=== PATIENT | female | born 2000 | race Caucasian/White ===

== ENCOUNTER 2019-08-23 20:18 | Outpatient (CLI) | payer OTHER ==
[~2019-08-23] VITALS: Ht 149.9 cm; Wt 61.6 kg
[~2019-08-23 20:18] MED LIST: SULF1TAB38 PO
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
--- NOTE | 2019-08-23 20:37 | NUR ---
Pt reports lower pelvic cramping resembling period cramping, and "it hurts when I walk." Rn asked when pain started, pt reports around 4-5pm. RN asks pt to rate pain, pt states "Right now when I'm not moving, its nothing, when I am up walking around its a 5 or a 6 out of 10."
--- NOTE | 2019-08-23 20:41 | NUR ---
Upon taking pt temperature light colored bruising noted to L yazdanism area extending down to wine colored spotted bruises noted to L jaw line. RN looks at other side of pts face/neck area, faint light colored area noted to R neck, Pt states "That down here, thats a hicky."
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
[2019-08-23 21:00] VITALS: BP 116/59
--- NOTE | 2019-08-23 21:07 | NUR ---
This rn is now wearing mask and pt is wearing a akash. Patricia Evangelista, Director of Womens services was contacted regarding Physician wanting pt tested for COVID-19. Patricia updated that pt is running 100.4 fever, denies cough, sob, or decrease in 02 levels. Edilia makes another phone call and calls this rn back. Testing is not available for one symptom of fever, to be tested other criteria needs to be met according to KDAT guidelines. RN voices understanding.
[2019-08-23] MEDS ORDERED: D5 LR IV SOLUTION 1,000 ML IV SCH (21:15)
[2019-08-23] MEDS ORDERED: D5 LR IV SOLUTION 1,000 ML IV ONE (21:17)
--- NOTE | 2019-08-23 21:18 | NUR ---
updated on drug screen, and update from Patricia regarding pt does not fit criteria for covid screening according to KDAT, repeat sve and occ ctx, fhr and temp now being 98.6. 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 Physician voices understanding. Addendum: 08/23/19 at 4263 by STANLEY REYES RN time for 2217
--- NOTE | 2019-08-23 21:34 | NUR ---
Lab called for request for blood draw as iv will not draw from site.
[2019-08-23] MEDS ORDERED: PREN-53 PO (21:41)
[2019-08-23 21:52] LABS: BILIRUBIN,URINE NEGATIVE (NEGATIVE); CLARITY,URINE CLEAR; COLOR,URINE YELLOW; GLUCOSE, URINE (UA) NEGATIVE (NEGATIVE); KETONES,URINE NEGATIVE (NEGATIVE); LEUKOCYTE ESTERASE ,URINE TRACE (NEGATIVE); NITRITE,URINE NEGATIVE (NEGATIVE); PH,URINE 6.5 (5-9); PROTEIN,URINE NEGATIVE (NEGATIVE)
[2019-08-23 22:06] LABS: AMPHETAMINE SCREEN, URINE NEGATIVE (NEGATIVE); BARBITURATE SCREEN URINE NEGATIVE (NEGATIVE); BENZODIAZEPINES SCREEN URINE NEGATIVE (NEGATIVE); CANNABINOID SCREEN, URINE POSITIVE (NEGATIVE); COCAINE SCREEN URINE NEGATIVE (NEGATIVE); METHADONE STAT NEGATIVE (NEGATIVE); METHAMPHETAMINE SCREEN URINE S NEGATIVE (NEGATIVE); OPIATE SCREEN URINE NEGATIVE (NEGATIVE); OXYCODONE STAT NEGATIVE (NEGATIVE); PROPOXYPHENE STAT NEGATIVE (NEGATIVE); TRICYCLIC ANTIDEPRESSANTS SCRE NEGATIVE (NEGATIVE)
--- NOTE | 2019-08-23 22:10 | NUR ---
Lab present for blood draw at this time.
[2019-08-23 22:24] LABS: BACTERIA,URINE TRACE /HPF; WBC,URINE 0-2 /HPF
[2019-08-23 22:25] LABS: AMORPHOUS SEDIMENT,UR FEW AMOR URATES /LPF
[2019-08-23 22:30] LABS: BASOPHILS % (AUTO) 0 % (0-10); EOSINOPHILS % (AUTO) 0 % (0-10); HEMATOCRIT 33 % (35-52); LYMPHOCYTES % (AUTO) 19 % (12-44); MEAN CORPUSCULAR HEMOGLOBIN 32 PG (25-34); MEAN CORPUSCULAR HGB CONC 33 G/DL (32-36); MEAN CORPUSCULAR VOLUME 96 FL (80-99); MEAN PLATELET VOLUME 11.6 FL (7.4-10.4); MONOCYTES # (AUTO) 1.5 X 10^3 (0.0-1.0); MONOCYTES % (AUTO) 7 % (0-12); NEUTROPHILS # (AUTO) 15.3 X 10^3 (1.8-7.8); NEUTROPHILS % (AUTO) 73 % (42-75); PLATELET COUNT 241 10^3/uL (130-400); RED CELL DISTRIBUTION WIDTH 13.2 % (10.0-14.5); WHITE BLOOD COUNT 20.8 10^3/uL (4.3-11.0)
[2019-08-23 22:39] LABS: ALANINE AMINOTRANSFERASE 18 U/L (0-55); ALBUMIN 3.4 GM/DL (3.2-4.5); ALKALINE PHOSPHATASE 95 U/L (40-136); BILIRUBIN,TOTAL 0.2 MG/DL (0.1-1.0); BUN/CREATININE RATIO 10; CALCIUM 8.3 MG/DL (8.5-10.1); CARBON DIOXIDE 19 MMOL/L (21-32); CHLORIDE 106 MMOL/L (98-107); CREATININE SERUM 0.59 MG/DL (0.60-1.30); GFR ESTIMATED > 60; GLUCOSE 76 MG/DL (70-105); POTASSIUM 3.3 MMOL/L (3.6-5.0); SODIUM 136 MMOL/L (135-145); TOTAL PROTEIN 5.8 GM/DL (6.4-8.2)
--- NOTE | 2019-08-23 22:49 | NUR ---
updated on all lab results, temp stabilization, ctx pattern, orders for am cbc and if pt spikes fever to contact physician. rn voiced understanding.
[2019-08-23 23:01] LABS: NEUTROPHILS % (MANUAL) 71 %
[2019-08-23 23:02] LABS: LYMPHOCYTES % (MANUAL) 24 %; MONOCYTES % (MANUAL) 5 %; RBC MORPH NORMAL
[2019-08-23 23:43] VITALS: BP 116/59
[2019-08-24] VITALS: BP 112/53
[2019-08-24 06:07] LABS: BASOPHILS % (AUTO) 0 % (0-10); EOSINOPHILS # (AUTO) 0.1 10^3/uL (0.0-0.3); EOSINOPHILS % (AUTO) 0 % (0-10); HEMATOCRIT 31 % (35-52); HEMOGLOBIN 10.1 G/DL (11.5-16.0); LYMPHOCYTES # (AUTO) 4.9 X 10^3 (1.0-4.0); LYMPHOCYTES % (AUTO) 28 % (12-44); MEAN CORPUSCULAR HEMOGLOBIN 32 PG (25-34); MEAN CORPUSCULAR HGB CONC 33 G/DL (32-36); MEAN CORPUSCULAR VOLUME 97 FL (80-99); MEAN PLATELET VOLUME 11.3 FL (7.4-10.4); MONOCYTES # (AUTO) 1.3 X 10^3 (0.0-1.0); MONOCYTES % (AUTO) 7 % (0-12); NEUTROPHILS # (AUTO) 11.3 X 10^3 (1.8-7.8); NEUTROPHILS % (AUTO) 65 % (42-75); PLATELET COUNT 233 10^3/uL (130-400); RED CELL DISTRIBUTION WIDTH 13.1 % (10.0-14.5); WHITE BLOOD COUNT 17.5 10^3/uL (4.3-11.0)
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
[2019-08-24] MEDS ORDERED: FAMOTIDINE 20 MG (PEPCID) TABLET PO SCH (09:00)
--- NOTE | 2019-08-24 10:00 | NUR ---
Dr Joens notified per phone of pt's request for antacid.
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
[2019-08-24] MEDS ORDERED: FAMO20TA5 PO (11:16)
--- NOTE | 2019-08-24 11:17 | Discharge Inst-Surgical ---
Discharge Inst-Surgical Depart Medication/Instructions New, Converted or Re-Newed RX: Call to Patients Pharmacy Consults/Follow Up Patient Instructions: As directed Orders & Referrals Follow Up Appt: Return to clinic on Monday, August 26, 2019 as scheduled Activity: Rest for 24 hours, than as tolerated. Please call in RX to patient pharmacy. Diet: As tolerated may shower or tub bathe as desired. Patient to return to the clinic as soon as possible for: Temperature greater than 101F, Severe Pain, Foul discharge from incision or vagina, Excessive Bleeding (more than a period). Activity Activity as Tolerated: Yes Diet Discharge Diet: No Restrictions LISA CURRY MD Aug 24, 2019 11:17
[2019-08-24] MEDS ORDERED: TETANUS,DIPTH,PERTUSS P/F (BOOSTRIX) 0.5 ML VIAL IM ONE (12:00)
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
[2019-08-24 15:03] VITALS: BP 122/59
[2019-08-24 15:15] VITALS: BP 122/59
== END 2019-08-24 15:15 | disposition home or self-care (01) ==
LOC: WSo 20:18 → LDRP 20:18 → WSo 08-24 15:15
PROVIDERS: ATTEND Obstetrics & Gynecology
DX: O60.03 Preterm labor without delivery, third trimester (principal); Z3A.32 32 weeks gestation of pregnancy
CPT/HCPCS: 36415; 80053; 80306; 81000; 85007; 85025; 85027; 90471; 90715; 96360; 96361

== ENCOUNTER 2019-09-25 12:30 | Inpatient (IN) | payer BC, MEDICAID ==
[2019-09-25] VITALS (31 sets, daily range): BP systolic 111–144; BP diastolic 51–75
[~2019-09-25] VITALS: Ht 149.9 cm; Wt 65.5 kg
--- NOTE | 2019-09-25 12:29 | NUR ---
DEEPTHI CHARLES admitted to room 3320-1, with an admitting diagnosis of labor, on 09/25/19 from home via ambulation, accompanied by friend.DEEPTHI CHARLES introduced to surroundings, call light, bed controls, phone, TV, temperature control, lights, meal times, smoking policy, visitor policy, side rail policy, bathrooms and showers. Patient Rights given to patient in the handbook. DEEPTHI CHARLES verbalizes understanding that [facility] is not responsible for the loss or damage to any personal effects or valuables that are kept in the patients posession during their hospitalization. The following Patient Care Plans were discussed with the patient: Discharge Planning, care, labor poc, and pain management. DEEPTHI CHARLES verbalizes understanding of Interdisciplinary Patient Education. Patient and/or family were informed about the Rapid Response Team and its purpose.
[~2019-09-25 12:30] MED LIST changes: +FAMO20TA5 PO; +PREN-53 PO
[2019-09-25] MEDS ORDERED: D5 LR IV SOLUTION 1,000 ML IV SCH ×2 (12:56→14:23)
[2019-09-25] MEDS ORDERED: fentaNYL 2 mcg/ml BUPIVA 0.125 100 ML ONE (13:17)
[2019-09-25] MEDS ORDERED: LACTATED RINGERS 1,000 ML IV ONE ×2 (13:17→14:34)
[2019-09-25 13:28] LABS: BASOPHILS % (AUTO) 0 % (0-10); EOSINOPHILS % (AUTO) 0 % (0-10); HEMATOCRIT 36 % (35-52); LYMPHOCYTES # (AUTO) 3.9 X 10^3 (1.0-4.0); LYMPHOCYTES % (AUTO) 19 % (12-44); MEAN CORPUSCULAR HEMOGLOBIN 32 PG (25-34); MEAN CORPUSCULAR HGB CONC 33 G/DL (32-36); MEAN CORPUSCULAR VOLUME 96 FL (80-99); MEAN PLATELET VOLUME 11.2 FL (7.4-10.4); MONOCYTES # (AUTO) 1.3 X 10^3 (0.0-1.0); MONOCYTES % (AUTO) 6 % (0-12); NEUTROPHILS # (AUTO) 15.3 X 10^3 (1.8-7.8); NEUTROPHILS % (AUTO) 75 % (42-75); PLATELET COUNT 274 10^3/uL (130-400); RED CELL DISTRIBUTION WIDTH 13.7 % (10.0-14.5); WHITE BLOOD COUNT 20.5 10^3/uL (4.3-11.0)
[2019-09-25 13:48] LABS: ALANINE AMINOTRANSFERASE 7 U/L (0-55); ALBUMIN 3.4 GM/DL (3.2-4.5); ALKALINE PHOSPHATASE 179 U/L (40-136); BILIRUBIN,TOTAL 0.3 MG/DL (0.1-1.0); BUN/CREATININE RATIO 11; CALCIUM 8.3 MG/DL (8.5-10.1); CARBON DIOXIDE 18 MMOL/L (21-32); CHLORIDE 107 MMOL/L (98-107); CREATININE SERUM 0.57 MG/DL (0.60-1.30); GFR ESTIMATED > 60; GLUCOSE 73 MG/DL (70-105); SODIUM 135 MMOL/L (135-145); TOTAL PROTEIN 6.4 GM/DL (6.4-8.2)
[2019-09-25] MEDS ORDERED: fentaNYL INJECTION 100 MCG/2 ML AMP ONE (13:52)
[2019-09-25] MEDS ORDERED: CATHETER FLUSH 10 ML SYR IV SCH (14:00)
[2019-09-25 14:05] LABS: LYMPHOCYTES % (MANUAL) 27 %; MONOCYTES % (MANUAL) 5 %; NEUTROPHILS % (MANUAL) 68 %; RBC MORPH NORMAL
[2019-09-25] MEDS ORDERED: OXYTOCIN PRE-MIX DRIP 500 ML IV SCH ×2 (14:23→17:53)
[2019-09-25] MEDS ORDERED: OXYC1TAB87 PO (14:35)
[2019-09-25] MEDS ORDERED: IBUP-1780 PO (14:35)
[2019-09-25] MEDS ORDERED: DOCU-143 PO (14:35)
--- NOTE | 2019-09-25 14:35 | Discharge Inst-Surgical ---
Discharge Inst-Surgical Depart Medication/Instructions New, Converted or Re-Newed RX: RX on Chart Consults/Follow Up Patient Instructions: As directed Orders & Referrals Follow Up Appt: Call to make follow up appt. for patient in 4 weeks. Activity Per routine post vaginal delivery instructions. Please call in RX to patient pharmacy. Diet as tolerated Patient may shower or tub bathe as desired. Activity Activity as Tolerated: No Diet Discharge Diet: No Restrictions LISA CURRY MD Sep 25, 2019 14:35
--- NOTE | 2019-09-25 14:38 | History & Physical ---
History and Physical Date Seen by Provider: Sep 25, 2019 Time Seen by Provider: 14:36 This patient is a 19-year-old 1 white female who was seen in my clinic on this date at 37 and 2/7 weeks' gestation. She was lakisha with some regularity. A change of cervix was noted from 3 to almost 5 cm over a period of one hour observation. She had developed bloody show in the process. Her GBS culture was negative. She's had no obstetric problems with this to date. She was sent to labor and delivery for labor management and delivery. Allergies are to Zithromax which causes a rash and Medications are vitamins Medical social and surgical histories are per the antepartum record HEENT exam is normal Neck is supple with no lymphadenopathy no thyromegaly Abdomen is gravid soft nontender nondistended Extremities show no clubbing cyanosis. There is no Homans sign. Pelvic exam is pending. Prior exam in my clinic is as noted above Assessment and plan term at 37+ weeks gestation in active labor. Patient has been admitted will be allowed an epidural and anticipate a vaginal delivery 37 week gestation in labor Allergies and Home Medications Allergies Coded Allergies: No Known Drug Allergies (Unverified , 11/12/11) Home Medications Docusate Sodium 100 Mg Capsule, 100 MG PO BID Prescribed by: LISA AHMADI on 09/25/19 1435 Famotidine 20 Mg Tablet, 20 MG PO BID Prescribed by: LISA AHMADI on 08/24/19 1116 Ibuprofen 800 Mg Tablet, 800 MG PO Q6H PRN for PAIN Prescribed by: LISA AHMADI on 09/25/19 1435 Oxycodone HCl/Acetaminophen 1 Each Tablet, 1 TAB PO Q4H Prescribed by: LISA AHMADI on 09/25/19 1435 [id number]/Iron Fumarate/FA/Dss 1 Each Tablet, 1 EACH PO DAILY, (Reported) Patient Home Medication List Home Medication List Reviewed: Yes Clinical Quality Measures DVT/VTE Risk/Contraindication: Risk Factor Score Per Nursin RFS Level Per Nursing on Admit: 1=Low/No VTE PPX LISA CURRY MD Sep 25, 2019 14:38
[2019-09-25] MEDS ORDERED: diphenhydrAMINE 50 MG/ML INJ (BENADRYL) IV PRN (14:45)
[2019-09-25] MEDS ORDERED: ONDANSETRON 4 MG/2 ML (SDV) Z0FRAN IV PRN (14:45)
[2019-09-25] MEDS ORDERED: METOCLOPRAMIDE INJ 10 MG/2 ML (REGLAN) IV PRN (14:45)
[2019-09-25] MEDS ORDERED: NALOXONE 0.4 MG/ML 1 ML (NARCAN) VIAL IV PRN ×2 (14:45)
[2019-09-25] MEDS ORDERED: EPIDURAL (fentaNYL 2 MCG/ML BUPIVA 0.125%)100 ML BAG EPI PRN (14:45)
[2019-09-25] MEDS ORDERED: LIDOCAINE/EPI 2% 1:200,00 (XYLOCAINE) 20 ML VIAL ONE (17:10)
--- NOTE | 2019-09-25 17:26 | NUR ---
SPONTANEOUS VAGINAL DELIVERY OF INTACT PLACENTA. CULTURE OBTAINED BY DR CURRY. SENT TO LAB ALONG WITH CORD BLOOD AND ABG'S. [address] CURRY USING 3.0 RAPIDE. PITOCIN ON AT 60CC/HR PER DR ORDERS. [address] AT PERINEUM ASSESSING FLOW. RN PERFORMING FUNDAL MASSAGE. MODERATE TO HEAVY FLOW. SEVERAL CLOTS EXPRESSED WITH MASSAGE. 1738 ASSISTED OUT OF STIRRUPS. REPOSITIONED TO SEMIFOWLER.
[2019-09-25] MEDS ORDERED: TETANUS,DIPTH,PERTUSS P/F (BOOSTRIX) 0.5 ML VIAL IM ONE (18:00)
[2019-09-25] MEDS ORDERED: oxyCODONE/APAP 5/325MG (PERCOCET 5) TABLET PO PRN (18:00)
[2019-09-25] MEDS ORDERED: MEASLES,MUMPS,RUBELLA 1 EA INJ SC ONE (18:00)
[2019-09-25] MEDS ORDERED: BENZOCAINE/MENTHOL (DERMOPLAST) 60 ML CAN TP PRN (18:00)
[2019-09-25] MEDS ORDERED: ONDANSETRON 4 MG/2 ML (SDV) Z0FRAN IVP PRN (18:00)
[2019-09-25] MEDS ORDERED: PIPERACILLIN/TAZO 4.5 GM/NS 100 ML IV ONE ×2 (18:45)
[2019-09-25] MEDS: KETOROLAC 30 MG/ML VIAL IVP SCH (18:50)
[2019-09-25] MEDS ORDERED: WITCH HAZEL(TUCKS) 40 EA JAR TOP PRN (19:00)
--- NOTE | 2019-09-25 21:00 | NUR ---
Pt moved to PP room, pt voided and pericare education given. Pt moving well independently with no concerns at this time.
[2019-09-25] MEDS: DOCUSATE SODIUM 100 MG (COLACE) CAP PO SCH (22:34)
--- NOTE | 2019-09-25 22:45 | NUR ---
REPORT RECEIVED AND CARES RESUMED BY THIS NURSE.
[2019-09-26 00:30] VITALS: BP 103/53
--- NOTE | 2019-09-26 00:30 | NUR ---
VS OBTAINED AND STABLE. PT DENIES ANY NEEDS. IN OPEN CRIB AT SIDE.
[2019-09-26] MEDS: KETOROLAC 30 MG/ML VIAL IVP SCH ×3 (01:25→16:00)
--- NOTE | 2019-09-26 01:25 | NUR ---
IV TORADOL ADMINISTERED. PT PREPARING TO BREASTFEED , BUT INFANT SLEEPY. PT WILL GET UP TO BATHROOM TO VOID AND THEN TRY TO AWAKEN . LOCHIA LIGHT. PERICARE COMPLETED.
[2019-09-26] MEDS ORDERED: PIPERACILLIN/TAZO 4.5 GM VIAL (ZOSYN) IV ONE (03:03)
[2019-09-26] MEDS ORDERED: NS (IVPB) 100 ML ONE (03:36)
[2019-09-26] MEDS: PIPERACILLIN/TAZOBACTAM (BULK) 4.5 GM in NS (IVPB) 100 ML IV SCH ×3 (03:55→21:04)
[2019-09-26 04:30] VITALS: BP 94/43
[2019-09-26 05:54] LABS: BASOPHILS % (AUTO) 0 % (0-10); EOSINOPHILS % (AUTO) 0 % (0-10); HEMATOCRIT 30 % (35-52); LYMPHOCYTES # (AUTO) 3.9 X 10^3 (1.0-4.0); LYMPHOCYTES % (AUTO) 20 % (12-44); MEAN CORPUSCULAR HEMOGLOBIN 32 PG (25-34); MEAN CORPUSCULAR HGB CONC 33 G/DL (32-36); MEAN CORPUSCULAR VOLUME 96 FL (80-99); MEAN PLATELET VOLUME 11.5 FL (7.4-10.4); MONOCYTES # (AUTO) 1.5 X 10^3 (0.0-1.0); MONOCYTES % (AUTO) 8 % (0-12); NEUTROPHILS # (AUTO) 14.2 X 10^3 (1.8-7.8); NEUTROPHILS % (AUTO) 72 % (42-75); PLATELET COUNT 235 10^3/uL (130-400); RED CELL DISTRIBUTION WIDTH 13.8 % (10.0-14.5); WHITE BLOOD COUNT 19.7 10^3/uL (4.3-11.0)
--- NOTE | 2019-09-26 07:58 | Progress Note ---
Standard Progress Note Progress Notes/Assess & Plan Date Seen by a Provider: Sep 26, 2019 Time Seen by a Provider: 07:56 Progress/Assessment & Plan This patient is without complaint. She is ablating, voiding, tolerating oral intake and has good pain control. Patient denies chest pain, denies shortness of breath, denies nausea vomiting, and denies headache. Vital Signs Date Time Temp Pulse Resp B/P (MAP) Pulse Ox O2 Delivery O2 Flow Rate FiO2 09/26/19 04:30 36.6 67 18 94/43 (60) 98 Room Air 09/26/19 00:30 36.7 74 18 103/53 (70) 98 Room Air 09/25/19 19:30 36.7 78 20 120/57 (78) Room Air 09/25/19 18:40 36.8 94 20 129/67 (87) 98 Room Air 09/25/19 18:25 36.6 96 20 123/58 (79) 98 Room Air 09/25/19 18:10 36.6 107 20 124/69 (87) 98 Room Air 09/25/19 17:55 36.4 90 20 120/58 (78) 98 Room Air 09/25/19 17:40 36.5 111 20 136/63 (87) 98 Room Air 09/25/19 17:25 36.4 116 20 144/75 (98) 98 Room Air 09/25/19 17:10 113 20 129/64 (85) 98 Room Air 09/25/19 16:55 71 20 119/60 (79) 98 Room Air 09/25/19 16:40 36.4 79 20 114/58 (76) 96 Room Air 09/25/19 16:25 76 20 111/57 (75) 96 Room Air 09/25/19 16:05 93 20 117/58 (77) 99 Room Air 09/25/19 15:55 77 20 111/53 (72) 99 Room Air 09/25/19 15:40 88 20 119/54 (75) 98 Room Air 09/25/19 15:30 77 20 117/56 (76) 98 Room Air 09/25/19 15:10 78 20 113/57 (75) 99 Room Air 09/25/19 14:55 82 20 116/57 (76) 99 Room Air 09/25/19 14:50 82 20 115/55 (75) 99 Room Air 09/25/19 14:45 81 20 111/57 (75) 99 Room Air 09/25/19 14:40 77 20 116/56 (76) 99 Room Air 09/25/19 14:35 36.5 85 20 115/60 (78) 99 Room Air 09/25/19 14:30 82 20 117/57 (77) 100 Room Air 09/25/19 14:25 94 20 122/58 (79) 100 Room Air 09/25/19 14:22 90 20 113/51 (71) 100 Room Air 09/25/19 14:18 94 20 124/60 (81) 98 Room Air 09/25/19 14:12 90 20 125/68 (87) 98 Room Air 09/25/19 14:08 77 20 125/67 (86) 99 Room Air 09/25/19 13:45 77 20 135/65 (88) Room Air 09/25/19 13:30 95 20 133/65 (87) Room Air 09/25/19 13:00 82 20 117/59 (78) Room Air 09/25/19 12:45 36.8 93 20 98 Room Air I & O 09/26/19 07:00 Intake Total 1620 ml Balance 1620 ml Vital signs are stable. Patient is afebrile. Laboratory Tests 09/25/19 13:15 09/26/19 05:20 Physical exam The abdomen is benign. The fundus is firm below the umbilicus and nontender. Extremities show no clubbing or cyanosis. There is no Homans sign. There is minimal pretibial pitting edema. Assessment and plan day number 1 status post spontaneous vaginal delivery at 37+ weeks gestation. Patient had an elevated white count on admission and there was purulent discharge noted at the time of delivery. Patient had been maintained now on Zosyn and we will continue that for another 24 hours and recheck her white blood cell count in the morning LISA CRURY MD Sep 26, 2019 07:58
[2019-09-26] MEDS: DOCUSATE SODIUM 100 MG (COLACE) CAP PO SCH ×2 (08:27→21:03)
[2019-09-26 08:30] VITALS: BP 116/59
--- NOTE | 2019-09-26 08:30 | NUR ---
A.M. ASSESSMENT COMPLETED. VSS. ASSISTING PT WITH GETTING INFANT ON BREAST. ENCOURAGED TO PLACE SKIN TO SKIN WHEN NOT WANTING TO EAT.
--- NOTE | 2019-09-26 09:39 | OPERATIVE REPORT ---
DATE OF SERVICE: 09/25/2019 DELIVERY NOTE The patient delivered by term spontaneous vaginal delivery at 37 plus weeks' gestation, a viable female with Apgars of 8 and 9 at one and five minutes respectively, weight of 5 pounds 11 ounces, time of 17:22 hours, cord blood pH that is pending. The delivered over a second-degree perineal laceration under epidural analgesia. There was a purulent discharge noted at the time of delivery. There was a foul odor of the amniotic fluid noted at the time of delivery. The infant was bulb suctioned on delivery of the head and again on completion of delivery. Umbilical cord was pretty quickly pulseless, it was doubly clamped. The patient's friend cut the cord and the baby was passed to mother's abdomen. The placenta delivered very promptly spontaneously Andrade. Cultures were obtained for aerobes and anaerobes from the surface of the placenta. Cord bloods having been obtained prior to delivery of the placenta. The cervix, vagina, rectum, and perineum were examined and found intact, except for a second-degree perineal laceration that was repaired with a single suture of 3-0 Vicryl Rapide in the usual manner without difficulty. Sponge and needle counts were correct on completion of delivery and repair. Estimated blood loss was around 300 mL. The patient tolerated the delivery and the repair well and remained in the LDR for recovery. The baby remained with the mom. Job ID: [id number] DocumentID: [id number] Dictated Date: 09/26/2019 08:01:43 Pipeline Welder Date: 09/26/2019 09:38:23 Dictated By: LISA CURRY MD
--- NOTE | 2019-09-26 10:00 | NUR ---
CONTINUES TO DO WELL. CARING FOR INFANT IN ROOM. GOOD INTERACTION NOTED. HAS BEEN IN TO ASSIST NEEDED.
--- NOTE | 2019-09-26 10:43 | Anesthesia-Regional Post-Op ---
Regional Patient Condition Mental Status: Alert, Oriented x3 Circulation: Same as Pre-Op Headache: Absent Sensation: Full Recovery Motor Block: Absent Post Op Complications Complications None Follow Up Care/Instructions Patient Instructions None needed. Anesthesia/Patient Condition Patient is doing well, no complaints, stable vital signs, no apparent adverse anesthesia problems. No complications reported per nursing. ELAN MO CRNA Sep 26, 2019 10:43
[2019-09-26 12:30] VITALS: BP 114/57
--- NOTE | 2019-09-26 12:30 | NUR ---
VSS. CONTINUES TO DO WELL. CARING FOR IN ROOM.
--- NOTE | 2019-09-26 12:50 | NUR ---
ZOSYN STARTED PER ORDER. IV SITE CLEAR BU GETTING TENDER. NO INFILTRATION. .
--- NOTE | 2019-09-26 15:15 | NUR ---
INFANT TO NURSERY TO RETAPE IV.
[2019-09-26 16:00] VITALS: BP 118/54
--- NOTE | 2019-09-26 16:00 | NUR ---
INFANT RETURNED TO MOM VIA OPEN CRIB.
--- NOTE | 2019-09-26 16:13 | NUR ---
ZOSYN INFUSED. IV TENDER AT SITE. D/C'ED. WILL RESTART BEFORE NEXT DOSE.
--- NOTE | 2019-09-26 16:30 | NUR ---
INFANT TO THE NURSERY WHILE PT SHOWERS. S.O. HAS PERMISSION TO COME STAY WITH PT.
--- NOTE | 2019-09-26 17:00 | NUR ---
INFANT RETURNED TO MOM.
--- NOTE | 2019-09-26 18:40 | NUR ---
SALINE LOCK RESTARTED IN RIGHT HAND WITH #20 G INTRACATH. SITE CLEAR.
[2019-09-26 20:00] VITALS: BP 120/68
[2019-09-26] MEDS ORDERED: IBUPROFEN 800 MG (MOTRIN) TAB PO ONE (21:02)
[2019-09-26] MEDS: IBUPROFEN 800 MG (MOTRIN) TAB PO SCH (22:32)
[2019-09-27 02:26] VITALS: BP 90/48
[2019-09-27] MEDS: PIPERACILLIN/TAZOBACTAM (BULK) 4.5 GM in NS (IVPB) 100 ML IV SCH (04:39)
[2019-09-27] MEDS: IBUPROFEN 800 MG (MOTRIN) TAB PO SCH ×2 (04:39→17:49)
[2019-09-27 05:31] LABS: BASOPHILS % (AUTO) 0 % (0-10); EOSINOPHILS # (AUTO) 0.2 10^3/uL (0.0-0.3); EOSINOPHILS % (AUTO) 1 % (0-10); HEMATOCRIT 35 % (35-52); HEMOGLOBIN 11.5 G/DL (11.5-16.0); LYMPHOCYTES # (AUTO) 5.5 X 10^3 (1.0-4.0); LYMPHOCYTES % (AUTO) 30 % (12-44); MEAN CORPUSCULAR HEMOGLOBIN 32 PG (25-34); MEAN CORPUSCULAR HGB CONC 33 G/DL (32-36); MEAN CORPUSCULAR VOLUME 97 FL (80-99); MEAN PLATELET VOLUME 10.7 FL (7.4-10.4); MONOCYTES # (AUTO) 1.2 X 10^3 (0.0-1.0); MONOCYTES % (AUTO) 7 % (0-12); NEUTROPHILS # (AUTO) 11.2 X 10^3 (1.8-7.8); NEUTROPHILS % (AUTO) 62 % (42-75); PLATELET COUNT 271 10^3/uL (130-400); RED CELL DISTRIBUTION WIDTH 13.7 % (10.0-14.5); WHITE BLOOD COUNT 18.1 10^3/uL (4.3-11.0)
[2019-09-27] MEDS: DOCUSATE SODIUM 100 MG (COLACE) CAP PO SCH (07:28)
[2019-09-27 07:30] VITALS: BP 103/50
--- NOTE | 2019-09-27 07:58 | Progress Note ---
Standard Progress Note Progress Notes/Assess & Plan Date Seen by a Provider: September 27, 2019 Time Seen by a Provider: 07:56 Progress/Assessment & Plan This patient is without complaint. She is ablating, voiding, tolerating oral intake and has good pain control. Patient denies chest pain, denies shortness of breath, denies nausea vomiting, and denies headache. Vital Signs Date Time Temp Pulse Resp B/P (MAP) Pulse Ox O2 Delivery O2 Flow Rate FiO2 09/26/19 04:30 36.6 67 18 94/43 (60) 98 Room Air 09/26/19 00:30 36.7 74 18 103/53 (70) 98 Room Air 09/25/19 19:30 36.7 78 20 120/57 (78) Room Air 09/25/19 18:40 36.8 94 20 129/67 (87) 98 Room Air 09/25/19 18:25 36.6 96 20 123/58 (79) 98 Room Air 09/25/19 18:10 36.6 107 20 124/69 (87) 98 Room Air 09/25/19 17:55 36.4 90 20 120/58 (78) 98 Room Air 09/25/19 17:40 36.5 111 20 136/63 (87) 98 Room Air 09/25/19 17:25 36.4 116 20 144/75 (98) 98 Room Air 09/25/19 17:10 113 20 129/64 (85) 98 Room Air 09/25/19 16:55 71 20 119/60 (79) 98 Room Air 09/25/19 16:40 36.4 79 20 114/58 (76) 96 Room Air 09/25/19 16:25 76 20 111/57 (75) 96 Room Air 09/25/19 16:05 93 20 117/58 (77) 99 Room Air 09/25/19 15:55 77 20 111/53 (72) 99 Room Air 09/25/19 15:40 88 20 119/54 (75) 98 Room Air 09/25/19 15:30 77 20 117/56 (76) 98 Room Air 09/25/19 15:10 78 20 113/57 (75) 99 Room Air 09/25/19 14:55 82 20 116/57 (76) 99 Room Air 09/25/19 14:50 82 20 115/55 (75) 99 Room Air 09/25/19 14:45 81 20 111/57 (75) 99 Room Air 09/25/19 14:40 77 20 116/56 (76) 99 Room Air 09/25/19 14:35 36.5 85 20 115/60 (78) 99 Room Air 09/25/19 14:30 82 20 117/57 (77) 100 Room Air 09/25/19 14:25 94 20 122/58 (79) 100 Room Air 09/25/19 14:22 90 20 113/51 (71) 100 Room Air 09/25/19 14:18 94 20 124/60 (81) 98 Room Air 09/25/19 14:12 90 20 125/68 (87) 98 Room Air 09/25/19 14:08 77 20 125/67 (86) 99 Room Air 09/25/19 13:45 77 20 135/65 (88) Room Air 09/25/19 13:30 95 20 133/65 (87) Room Air 09/25/19 13:00 82 20 117/59 (78) Room Air 09/25/19 12:45 36.8 93 20 98 Room Air I & O 09/26/19 07:00 Intake Total 1620 ml Balance 1620 ml Vital signs are stable. Patient is afebrile. Laboratory Tests 09/25/19 13:15 09/26/19 05:20 Physical exam The abdomen is benign. The fundus is firm below the umbilicus and nontender. Extremities show no clubbing or cyanosis. There is no Homans sign. There is minimal pretibial pitting edema. Assessment and plan day number 1 status post spontaneous vaginal d elivery at 37+ weeks gestation. Patient had an elevated white count on admission and there was purulent discharge noted at the time of delivery. Patient had been maintained now on Zosyn and we will continue that for another 24 hours and recheck her white blood cell count in the morning September 27, 2019 This patient is without complaint. She is ambulating, voiding, tolerating oral intake well has good pain control. Vital Signs Date Time Temp Pulse Resp B/P (MAP) Pulse Ox O2 Delivery O2 Flow Rate FiO2 09/27/19 02:26 37.0 77 16 90/48 (62) 98 Room Air 09/26/19 21:00 100 Room Air 09/26/19 20:00 36.9 76 18 120/68 (85) 100 Room Air 09/26/19 16:00 36.5 77 18 118/54 (75) 98 Room Air 09/26/19 12:30 36.5 77 18 114/57 (76) 98 Room Air 09/26/19 08:30 36.7 74 18 116/59 (78) 98 Room Air I & O 09/27/19 07:00 Intake Total 240 ml Balance 240 ml Laboratory Tests 09/27/19 05:15 Vital signs are stable. Patient is afebrile. The abdomen is benign. Fundus is firm below the umbilicus and nontender. Extremities show no clubbing or cyanosis. There is no Homans sign. Assessment and plan day number 2 status post vaginal delivery at 37+ weeks gestation. Patient has been on IV antibiotics for repeat hours and has not demonstrated an elevated temperature. We will halt the antibiotics allow for discharge home and follow-up in clinic Final Diagnosis 37 week spontaneous vaginal delivery LISA CURRY MD September 27, 2019 07:58
--- NOTE | 2019-09-27 09:37 | NUR ---
CM/SS visited with patient for social service consult. The patient and her significant other were laying in bed with baby. The patient reports they are naming baby Iwona. She is currently living with her father. The patient reports that she feels she has a good support system that will be available to assist her if she needs anything. The patient will return home with her father but will be moving into HUD housing soon. She receives her HUD voucher on Monday. The patient states that when she goes to HUD housing her significant other will be living with her. The patients significant other is the father of the baby. He reports he will be involved in the baby's care. Resources: CM/SS provided the patient with handouts on the different resources in the area. Cm/SS explained Healthy Families, Parents as Teachers, one to three, and [facility] diaper Stock. The patient verbalized understanding but denied the need for any of them. CM/SS asked if this ss could refer her to any of them and she stated "no". CM/SS also discussed WIC with the patient. She is not currently enrolled but stated she is waiting until she moves into the HUD housing due to not wanting to include her fathers income. CM/SS discussed the benefits of utilizing WIC. She verbalized understanding. The patient denied this ss for making a referral at this time. The patient has Medicaid; however, does not receive fuller assistance. The patient reported that she does have a car seat, crib, diapers, and clothes. She reports that she is going to breast feed therefore she did not need formula at this time. She reports that she does not need any assistance at this time and declined any referrals for services.
--- NOTE | 2019-09-27 10:00 | NUR ---
Pt refused Motrin due to denial of pain. Cuddles with .
[2019-09-27 14:05] VITALS: BP 109/55
--- NOTE | 2019-09-27 14:30 | NUR ---
Discharge instructions - pt verbalizes understanding.
[2019-09-27 15:00] VITALS: BP 103/50
[2019-09-27 20:00] VITALS: BP 130/80
--- NOTE | 2019-09-27 20:00 | NUR ---
RN to room, vss, reviewed discharge info. questions answered. Pt stable.
--- NOTE | 2019-09-27 20:55 | NUR ---
Pt ambulated (per choice) off unit with this RN and .
--- NOTE | 2019-09-30 11:04 | Physician Query Clarification ---
PQ-Intro New Diagnosis Admission/Discharge Admission Date: Sep 25, 2019 at 12:30 Discharge Date: September 27, 2019 at 20:55 The medical record reflects the following clinical scenario: History/Risk Factors: Delivery Clinical Findings: Elevated temperature purulent discharge at delivery, foul odor amniotic fluid, placenta cultures - Garnerella vaginalis Treatment: IV Abx Question: What condition best reflects the above clinical scenario? Please document a response in the Progress Noter or Discharge Summary. 1. Placentitis 2. Amnionitis 3. Other, with explanation of the clinical findings. 4. Clinically undetermined, no explanation for the clinical findings. PHYSICIAN RESPONSE What condition reflects above: Other, explanation/clinical finding Explanation of clincal finding Chorioamnionitis - resolved after delivery Please remember a lack of response to the above will prompt a phone page by CDI/Coding staff. In responding to this query, please exercise your independent professional judgment. The purpose of this communication is to more accurately reflect the complexity of your patients condition. The fact that a question is asked does not imply that any particular answer is desired or expected. Thank you for your timely response to this clarification. Requestors name: Sammie THIS PHYSICIAN QUERY FORM IS A PERMANENT PART OF THE MEDICAL RECORD SAMMIE KISER September 30, 2019 11:04 LISA CURRY MD October 01, 2019 07:54
[2019-09-30] MEDS ORDERED: IBUPROFEN 800 MG (MOTRIN) TAB PO SCH (18:00)
== END 2019-09-27 20:55 | disposition home or self-care (01) | DRG 805 ==
LOC: LDRP 12:30
PROVIDERS: ADMIT Obstetrics & Gynecology; ATTEND Obstetrics & Gynecology
PROC: 10E0XZZ Delivery of Products of Conception, External Approach (ICD-10-PCS; principal; 2019-09-25)
DX: O70.1 Second degree perineal laceration during delivery (principal); O41.1230 Chorioamnionitis, third trimester, not applicable or unspecified; Z37.0 Single live birth; Z3A.37 37 weeks gestation of pregnancy
CPT/HCPCS: 36415; 80053; 85007; 85025; 85027; 86850; 86900; 86901; 87070; 87075; 87077; 87205

== ENCOUNTER 2019-10-25 11:01 | Outpatient (RCR) | payer BC, MEDICAID ==
[~2019-10-25 11:01] MED LIST changes: +DOCU-143 PO; +IBUP-1780 PO; +OXYC1TAB87 PO
== END 2019-10-25 14:34 | disposition home or self-care (01) ==
LOC: PREOP 11:01
PROVIDERS: ATTEND Obstetrics & Gynecology
DX: Z01.818 Encounter for other preprocedural examination (principal)

== ENCOUNTER 2022-04-29 19:06 | Observation (INO) | payer MEDICAID ==
[~2022-04-29] VITALS: Ht 149.9 cm; Wt 70.3 kg
[2022-04-29 19:29] VITALS: BP 124/65
[2022-04-29 19:40] LABS: BILIRUBIN,URINE NEGATIVE (NEGATIVE); CLARITY,URINE CLOUDY; COLOR,URINE BROWN; GLUCOSE, URINE (UA) NEGATIVE (NEGATIVE); KETONES,URINE NEGATIVE (NEGATIVE); LEUKOCYTE ESTERASE ,URINE TRACE (NEGATIVE); NITRITE,URINE NEGATIVE (NEGATIVE); PH,URINE 6.5 (5-9); PROTEIN,URINE TRACE (NEGATIVE)
[2022-04-29 19:51] LABS: BACTERIA,URINE TRACE /HPF; RBC,URINE TNTC /HPF; SQUAMOUS EPITHELIAL CELL,UR 0-2 /HPF; WBC,URINE RARE /HPF
[2022-04-29] MEDS ORDERED: LACTATED RINGERS 1,000 ML IV SCH (20:15)
[2022-04-29 20:29] LABS: BASOPHILS % (AUTO) 0 % (0-10); EOSINOPHILS % (AUTO) 0 % (0-10); HEMATOCRIT 33 % (35-52); HEMOGLOBIN 10.8 g/dL (11.5-16.0); LYMPHOCYTES # (AUTO) 4.4 10^3/uL (1.0-4.0); LYMPHOCYTES % (AUTO) 27 % (12-44); MEAN CORPUSCULAR HEMOGLOBIN 32 pg (25-34); MEAN CORPUSCULAR HGB CONC 33 g/dL (32-36); MEAN CORPUSCULAR VOLUME 97 fL (80-99); MEAN PLATELET VOLUME 10.7 fL (9.0-12.2); MONOCYTES # (AUTO) 1.1 10^3/uL (0.0-1.0); MONOCYTES % (AUTO) 6 % (0-12); NEUTROPHILS # (AUTO) 10.9 10^3/uL (1.8-7.8); NEUTROPHILS % (AUTO) 66 % (42-75); PLATELET COUNT 259 10^3/uL (130-400); WHITE BLOOD COUNT 16.5 10^3/uL (4.3-11.0)
[2022-04-29] MEDS ORDERED: LACTATED RINGERS 1,000 ML IV ONE (20:50)
[2022-04-29 20:51] LABS: ALBUMIN 3.4 GM/DL (3.2-4.5); BILIRUBIN,TOTAL 0.2 MG/DL (0.1-1.0); CALCIUM 8.7 MG/DL (8.5-10.1); CREATININE SERUM 0.57 MG/DL (0.60-1.30); POTASSIUM 3.5 MMOL/L (3.6-5.0); TOTAL PROTEIN 6.5 GM/DL (6.4-8.2)
[2022-04-29] MEDS: LACTATED RINGERS 1,000 ML IV SCH (20:54)
[2022-04-29] MEDS ORDERED: cefTRIAXone 1 GM PRE-MIX 50 ML IV ONE ×2 (21:00→21:25)
[2022-04-29] MEDS ORDERED: TERBUTALINE INJ 1 MG/ML (BRETHINE) AMP SC ONE (21:00)
[2022-04-29] MEDS ORDERED: TERBUTALINE INJ 1 MG/ML (BRETHINE) AMP ONE (21:08)
[2022-04-29 21:39] LABS: LYMPHOCYTES % (MANUAL) 32 %; MONOCYTES % (MANUAL) 2 %; NEUTROPHILS % (MANUAL) 66 %; RBC MORPH NORMAL
[2022-04-29 22:00] VITALS: BP 122/56
[2022-04-29] MEDS ORDERED: BETAMETHASONE ACE/NA PHOS 6 MG/ML (CELESTONE SOLUSPAN) IM SCH (22:15)
[2022-04-29] MEDS ORDERED: TERBUTALINE INJ 1 MG/ML (BRETHINE) AMP SC PRN (22:15)
[2022-04-29] MEDS ORDERED: ONDANSETRON 4 MG/2 ML (SDV) Z0FRAN IVP PRN (22:15)
[2022-04-30 03:37] VITALS: BP 118/58
[2022-04-30] MEDS: LACTATED RINGERS 1,000 ML IV SCH (03:39)
--- NOTE | 2022-04-30 06:31 | History & Physical ---
SPENCER MOBLEY 04/30/22 0631: HPI History of Present Illness: Viviana is a 22 y/o at 28wks who presented due to gross blood in urine and was found to be having contractions. The patient states that after being on her feet at work all day she went to the bathroom and noticed discoloration of her urine. She states this has never happened to her before, there was no trauma involved, and no pain at that time. Has had some generalized lower abdominal and lowernback pressure. Patient does not believe there was a rupture of membranes. Patient denies history of bladder or kidney problems in the past,denies previous hematuria. Source: patient Exam Limitations: no limitations Date seen by provider: Apr 30, 2022 Time Seen by Provider: 06:15 Attending Physician [place] PCP Admitting Physician: Renee Melendez MD Attending Physician: Renee Melendez MD Consult Date of Admission Apr 29, 2022 at 22:01 Home Medications Home Medications Reviewed patient Home Medication Reconciliation performed by pharmacy medication reconciliations semiconductor lab technician and/or nursing. Patients Allergies have been reviewed. Allergies Coded Allergies: azithromycin (Verified Allergy, Mild, Rash, 09/26/19) [id number] Hx Patient Social History Employed/Student: employed Smoking Status: Former Smoker 2nd Hand Smoke Exposure: No (denies) Recent Hopitalizations: No Alcohol Use?: No Immunizations Up To Date Influenza Vaccine Up-to-Date: No; Not Current Family Medical History Family History: Hepatitis C Review of Systems (CHC) Constitutional: see HPI; No chills, No fever Respiratory: no symptoms reported Cardiovascular: no symptoms reported Gastrointestinal: LLQ (cramping) Genitourinary: No dysuria, No frequency; hematuria : Yes Reviewed Test Results Reviewed Test Results Lab Laboratory Tests 04/29/22 19:15: Urine Color BROWNH, Urine Protein TRACEH, Urine Leukocyte Esterase TRACEH, Urine RBC (Auto) 3+H, Urine RBC TNTCH, Urine Mucus SMALLH 04/29/22 20:20: White Blood Count 16.5H, Red Blood Count 3.36L, Hemoglobin 10.8L, Hematocrit 33L , Neutrophils # (Auto) 10.9H, Lymphocytes # (Auto) 4.4H, Monocytes # (Auto) 1.1H , Potassium Level 3.5L, Carbon Dioxide Level 20L, Creatinine 0.57L 04/29/22 21:08: Radiology Obstetric US: 7.9 cm total cervix length with 3cms of tunneling leaving 4-5 cm of closed cervix. Renal US: nonspecific echogenicity: hemorrhage vs artifact. Kidneys unremarkable. Physical Exam-([facility]) Physical Exam Vital Signs VS - Last 72 Hours, by Label 04/29/22 04/29/22 04/29/22 04/30/22 19:29 19:29 22:00 03:37 Temp 37.5 37.5 36.2 36.8 Pulse 94 94 100 99 Resp 18 18 18 18 B/P (MAP) 124/65 124/65 (84) 122/56 (78) 118/58 (78) Pulse Ox 100 100 O2 Delivery Room Air Room Air Room Air Room Air 04/30/22 04/30/22 08:00 11:50 Temp 37.2 37.2 Pulse 86 86 Resp 18 18 B/P (MAP) 126/79 (95) 126/79 Pulse Ox 100 O2 Delivery Room Air Room Air Capillary Refill : Less Than 3 Seconds General Appearance: WD/WN, no apparent distress Respiratory: lungs clear, normal breath sounds, no respiratory distress, no accessory muscle use Cardiovascular: regular rate, rhythm, no edema, no gallop, no JVD, no murmur Gastrointestinal: non tender, soft Back: no CVA tenderness Comments Gravid abdomen, nontender Assessment/Plan Assessment/Plan Admission Dx Contractions/PTL Painless Hematuria (1) 28 weeks gestation of Assessment & Plan: Patient receiving routine care outpatient. (2) contractions Status: Acute Assessment & Plan: Continuous monitoring. LR given. Contractions slowed, did not stop. Betamethasone given to help with lung maturity. Terbutaline given. Contractions stopped. U/S to measure cervical length. Total cervical length 7.9cm with 3cm of funneling leaving 4-5cms of closed cervix. Plan for discharge. Patient will return for second Betamethasone injection 24hrs from first injection. (3) Blood in urine Status: Acute Assessment & Plan: Gross hematuria - has since resolved. Ceftriaxone given to cover for UTI coverage. UA showed 3+ blood in urine, did not show infection. Kidney U/S ordered. Showed nonspecific echogenicity - hemorrhage vs artifact. Kidneys unremarkable. Recommend PCP continue to work up in the period. Qualifiers: Qualified Codes: R31.0 - Gross hematuria (4) Nausea Status: Acute Assessment & Plan: LRs and Ondansetron given. Has improved. RENEE MELENDEZ MD 04/30/22 9349: Home Medications Allergies Coded Allergies: azithromycin (Verified Allergy, Mild, Rash, 09/26/19) [id number] Hx Family Medical History Family History: Hepatitis C Assessment/Plan Assessment/Plan Admission Status: Observation Supervisory-Addendum Brief Verification & Attestation Participated in pt care: history, MDM, physical Personally performed: exam, history, MDM, supervision of care Care discussed with: Medical Student Procedures: n/a Pt seen and examined by me, I repeated the history myself and did my own exam which confirmed the fndings documented by the medical student. status reassuring throughout. SPENCER MOBLEY Apr 30, 2022 06:31 RENEE MELENDEZ MD Apr 30, 2022 22:39
[2022-04-30 08:00] VITALS: BP 126/79
--- NOTE | 2022-04-30 09:53 | Diagnostic Imaging Report ---
US LIMITED [id number] INDICATION: Cervical length COMPARISON: None available. TECHNIQUE: Limited transabdominal sonographic imaging of the pelvis was performed. FINDINGS: The cervix measures 7.9 cm in length. There is approximately 3.3 cm of funneling of the cervix. Placenta is posterior in position and tip is 4.9 cm from the internal cervical os. Fetus is in cephalic presentation. heart rate is 132 bpm. The JARED is normal at 15.0 cm. IMPRESSION: 1. Total cervical length is 7.9 cm, although there appears to be approximately 3 cm of funneling in the upper cervix. Approximately 4 to 5 cm of the cervix remains closed. Dictated by: Dictated on workstation # [id number]
--- NOTE | 2022-04-30 10:30 | Diagnostic Imaging Report ---
PROCEDURE: US Renal Bilateral. TECHNIQUE: Multiple real-time grayscale images were obtained over the kidneys in various projections bilaterally. INDICATION: Blood in urine. . Ultrasound bilateral renal 04/30/2022 FINDINGS: Right kidney 11.6 cm in length. Left kidney 10.1 cm. Bilateral ureteral jets visualized. No hydronephrosis appreciated. No obvious stones or masses seen in either kidney. There is heterogeneous echogenicity throughout the urinary bladder likely artifactual however this does obscure evaluation of the dependent aspect of the bladder with hematoma/hemorrhage not excluded in the bladder. IMPRESSION: 1. Nonspecific echogenicity throughout the bladder with areas of hemorrhage difficult to exclude versus artifact. 2. Bilateral ureteral jets seen with the kidneys unremarkable. Dictated by: Dictated on workstation # [id number]
[2022-04-30] MEDS ORDERED: AMOX-355 PO (11:30)
[2022-04-30 11:50] VITALS: BP 126/79
--- NOTE | 2022-04-30 13:17 | Discharge Summary ---
SPENCER MOBLEY 04/30/22 1311: Discharge Summary Hospital Course Problems Reviewed?: Yes Problems/Diagnosis: (1) 28 weeks gestation of Assessment & Plan: Follow up with obstetrics provider outpatient. Continue routine care. (2) contractions Status: Acute Assessment & Plan: Continuous monitoring. Reassuring heart tones. LR given. Contractions slowed, did not stop. Betamethasone given to help with lung maturity. Terbutaline given. Contractions stopped. U/S to measure cervical length. Total cervical length 7.9cm with 3cm of funneling leaving 4-5cms of closed cervix. Plan for discharge. Patient will return for second Betamethasone injection 24hrs from first injection. (3) Blood in urine Status: Acute Assessment & Plan: Gross hematuria - has since resolved. Ceftriaxone given to cover for UTI coverage. UA showed 3+ blood in urine, did not show infection. Kidney U/S ordered. Showed nonspecific echogenicity - hemorrhage vs artifact. Kidneys unremarkable. Recommend PCP continue to work up in the period. Consider finishing antibiotic course outpatient. Qualifiers: Qualified Codes: R31.0 - Gross hematuria (4) Nausea Status: Acute Assessment & Plan: LRs and Ondansetron given. Has improved. Follow up with obstetric provider outpatient. Hospital Course Date of Admission: Apr 29, 2022 at 22:01 Admission Diagnosis : Family Physician/Provider: [facility] Date of Discharge: 04/30/22 Discharge Diagnosis: [ ] Hospital Course: [ ] Labs and Pending Lab Test: Laboratory Tests 04/29/22 19:15: Urine Color BROWNH, Urine Clarity CLOUDY, Urine pH 6.5, Urine Specific [place] 1.020, Urine Protein TRACEH, Urine Glucose (UA) NEGATIVE, Urine Ketones NEGATIVE, Urine Nitrite NEGATIVE, Urine Bilirubin NEGATIVE, Urine Urobilinogen 0.2, Urine Leukocyte Esterase TRACEH, Urine RBC (Auto) 3+H, Urine RBC TNTCH, Urine WBC RARE, Urine Squamous Epithelial Cells 0-2, Urine Crystals NONE, Urine Bacteria TRACE, Urine Casts NONE, Urine Mucus SMALLH, Urine Culture Indicated NO 04/29/22 20:20: White Blood Count 16.5H, Red Blood Count 3.36L, Hemoglobin 10.8L, Hematocrit 33L , Mean Corpuscular Volume 97, Mean Corpuscular Hemoglobin 32, Mean Corpuscular Hemoglobin Concent 33, Red Cell Distribution Width 13.2, Platelet Count 259, Mean Platelet Volume 10.7, Immature Granulocyte % (Auto) 0, Neutrophils (%) (Auto) 66, Lymphocytes (%) (Auto) 27, Monocytes (%) (Auto) 6, Eosinophils (%) (Auto) 0, Basophils (%) (Auto) 0, Neutrophils # (Auto) 10.9H, Lymphocytes # (Auto) 4.4H, Monocytes # (Auto) 1.1H, Eosinophils # (Auto) 0.0, Basophils # (Auto) 0.0, Immature Granulocyte # (Auto) 0.1, Neutrophils % (Manual) 66, Lymphocytes % (Manual) 32, Monocytes % (Manual) 2, Blood Morphology Comment NORMAL, Sodium Level 136, Potassium Level 3.5L, Chloride Level 106, Carbon Dioxide Level 20L, Anion Gap 10, Blood Urea Nitrogen 7, Creatinine 0.57L, Estimat Glomerular Filtration Rate 130, BUN/Creatinine Ratio 12, Glucose Level 78, Calcium Level 8.7, Corrected Calcium 9.2, Total Bilirubin 0.2, Aspartate Amino Transf (AST/SGOT) 15, Alanine Aminotransferase (ALT/SGPT) 13, Alkaline Phosphatase 75, Total Protein 6.5, Albumin 3.4 04/29/22 21:08: Lactic Acid Level 1.46 Home Meds Active Augmentin 500-125 Tablet (Amoxicillin/Potassium Clav) 500 Mg-125 Mg Tablet 1 Each PO BID 7 Days Reported 19 Tablet (Mgz475/Iron Fumarate/FA/Dss) 1 Each Tablet 1 Each PO DAILY Discharge Diet: No Restrictions Activity as Tolerated: Yes Discharge Physical Examination Allergies: Coded Allergies: azithromycin (Verified Allergy, Mild, Rash, 09/26/19) General Appearance: No Apparent Distress Respiratory: Lungs Clear, Normal Breath Sounds, No Accessory Muscle Use, No Respiratory Distress Cardiovascular: Regular Rate, Rhythm, No Edema, No Gallop Gastrointestinal: Normal Bowel Sounds, Non Tender, Soft Skin: Normal Color, Warm/Dry Neurologic/Psychiatric: Alert, Oriented x3, No Motor/Sensory Deficits, Normal Mood/Affect Discharge Summary Date of Admission Apr 29, 2022 at 22:01 Date of Discharge Apr 30, 2022 at 11:50 Discharge Date: Apr 30, 2022 Admission Diagnosis Blood in urine. Contractions/PTL RENEE RÍOS MD 04/30/22 2701: Discharge Summary Hospital Course Problems/Diagnosis: (1) 28 weeks gestation of Assessment & Plan: Follow up with obstetrics provider outpatient. Continue routine care. (2) contractions Status: Acute Assessment & Plan: Continuous monitoring. Reassuring heart tones. LR given. Contractions slowed, did not stop. Betamethasone given to help with lung maturity. Terbutaline given. Contractions stopped. U/S to measure cervical length. Total cervical length 7.9cm with 3cm of funneling leaving 4-5cms of closed cervix. Plan for discharge. Patient will return for second Betamethasone injection 24hrs from first injectio n. (3) Blood in urine Status: Acute Assessment & Plan: Gross hematuria - has since resolved. Ceftriaxone given to cover for UTI coverage. UA showed 3+ blood in urine, did not show infection. Kidney U/S ordered. Showed nonspecific echogenicity - hemorrhage vs artifact. Kidneys unremarkable. Recommend PCP continue to work up in the period. Augmentin prescribed on d/c, urine culture pending. Qualifiers: Qualified Codes: R31.0 - Gross hematuria (4) Nausea Status: Acute Assessment & Plan: LRs and Ondansetron given. Has improved. Follow up with obstetric provider outpatient. Assessment/Pt DC Instructions Follow up with primary Ob provider. Discharge Physical Examination Allergies: Coded Allergies: azithromycin (Verified Allergy, Mild, Rash, 09/26/19) Supervisory-Addendum Brief Verification & Attestation Participated in pt care: history, MDM, physical Personally performed: exam, history, MDM, supervision of care Care discussed with: Medical Student Procedures: n/a I personally saw and examined patient, I did my own history, exam and directed the plan of care as documented by the medical student. SPENCER MOBLEY Apr 30, 2022 13:11 RENEE RÍOS MD Apr 30, 2022 22:41
[2022-04-30] MEDS ORDERED: BETAMETHASONE ACE/NA PHOS 6 MG/ML (CELESTONE SOLUSPAN) IM ONE (21:49)
[2022-04-30] MEDS ORDERED: BETAMETHASONE ACE/NA PHOS 6 MG/ML (CELESTONE SOLUSPAN) IM SCH (22:00)
== END 2022-04-30 11:50 | disposition home or self-care (01) ==
LOC: WSo 19:06 → LDRP 19:07 → WSo 22:00 → LDRP 22:01
PROVIDERS: ADMIT Family Medicine; ATTEND Family Medicine
DX: O60.03 Preterm labor without delivery, third trimester (principal); Z3A.28 28 weeks gestation of pregnancy; O99.119 Other diseases of the blood and blood-forming organs and certain disorders involving the immune mechanism complicating pregnancy, unspecified trimester; R31.0 Gross hematuria; O21.9 Vomiting of pregnancy, unspecified
CPT/HCPCS: 36415; 76770; 76815; 80053; 81000; 83605; 85007; 85027; 87088; 96361; 96372; 96374; 96375

== ENCOUNTER 2022-07-08 19:14 | Outpatient (CLI) | payer MEDICAID ==
[~2022-07-08] VITALS: Ht 149.9 cm; Wt 78.7 kg
[~2022-07-08 19:14] MED LIST changes: +AMOX-355 PO
[2022-07-08 19:45] LABS: BILIRUBIN,URINE NEGATIVE (NEGATIVE); CLARITY,URINE CLEAR; COLOR,URINE YELLOW; GLUCOSE, URINE (UA) NEGATIVE (NEGATIVE); KETONES,URINE NEGATIVE (NEGATIVE); LEUKOCYTE ESTERASE ,URINE 1+ (NEGATIVE); NITRITE,URINE NEGATIVE (NEGATIVE); PH,URINE 6.5 (5-9); PROTEIN,URINE NEGATIVE (NEGATIVE)
[2022-07-08 19:56] LABS: BACTERIA,URINE TRACE /HPF; RBC,URINE 0-2 /HPF
[2022-07-08 20:27] VITALS: BP 126/62
[2022-07-08] MEDS ORDERED: D5 LR IV SOLUTION 1,000 ML IV ONE (21:15)
[2022-07-08] MEDS ORDERED: D5 LR IV SOLUTION 1,000 ML IV SCH (21:15)
--- NOTE | 2022-07-11 09:03 | Physician Query-Final Dx ---
Clinic Account Progress/Dx Physician Query: Please give diagnosis Please include # weeks gestation Date of Service Jul 08, 2022 at 19:14 DARWINMayJul 11, 2022 09:03
== END 2022-07-08 23:25 ==
LOC: WSo 19:14 → LDRP 19:14 → WSo 23:25
PROVIDERS: ATTEND Family Medicine
DX: O62.9 Abnormality of forces of labor, unspecified (principal); Z3A.00 Weeks of gestation of pregnancy not specified
CPT/HCPCS: 81000; 87088; 96360; 99214